=== PATIENT | female | born 1990 | race Caucasian/White ===

== ENCOUNTER 2020-07-24 23:51 | Inpatient (IN) ==
[~2020-07-24 23:51] MED LIST: Ringers Solution, Lactated 1,000 ML IVC SCH
[2020-07-24] MEDS ORDERED: *HR* FentaNYL (PF) 100 MCG/2 ML VIAL IVP PRN (23:55)
[2020-07-24] MEDS ORDERED: Ondansetron 4 MG/2 ML VIAL IVP PRN (23:55)
[2020-07-24] MEDS ORDERED: Lidocaine 1% 20 ML MDV INFILT PRN (23:55)
[2020-07-24] MEDS ORDERED: Naloxone 0.4 MG/ML INJ IVP PRN (23:55)
[2020-07-24] MEDS ORDERED: Azithromycin 500 MG in 0.9 % Sodium Chloride 250 ML IVPB ONE (23:55)
[2020-07-24] MEDS ORDERED: Famotidine 20 MG/2 ML VIAL IVP PRN (23:55)
[2020-07-24] MEDS ORDERED: Metoclopramide 10 MG/2 ML VIAL IVP PRN (23:55)
[2020-07-25] MEDS ORDERED: Ringers Solution, Lactated 1,000 ML ONE (00:14)
[2020-07-25 00:28] LABS: Basophils % 0.1 %; Eosinophils # 0.1 K/mcL (0.0-0.6); Eosinophils % 0.7 %; Hematocrit 41.8 % (35.3-44.9); Immature Granulocytes % 0.4 % (0-4); Lymphocytes # 1.9 K/mcL (0.6-4.6); Lymphocytes % 14.1 %; Mean Corpuscular HGB Conc 33.5 g/dL (31.6-35.5); Mean Corpuscular Hemoglobin 31.8 pg (28.0-33.3); Mean Platelet Volume 11.5 fL (9.4-12.4); Monocytes # 1.1 K/mcL (0.0-1.3); Neutrophils # 10.3 K/mcL (1.6-8.9); Platelet Count 162 K/mcL (140-400); Red Cell Distribution Width 13.2 % (11.5-14.5); Segmented Neutrophils % 76.7 %; White Blood Count 13.5 K/mcL (4.3-11.1)
[2020-07-25 00:33] LABS: Amphetamine Screen,Urine Negative ng/mL (Cutoff=1000); Barbiturate Screen,Urine Negative ng/mL (Cutoff=200); Benzodiazepines Screen,Urine Negative ng/mL (Cutoff=200); Cannabinoid Screen,Urine Negative ng/mL (Cutoff = 50); Cocaine Screen,Urine Negative ng/mL (Cutoff= 300); Opiate Screen,Urine Negative ng/mL (Cutoff=300); Phencyclidine Screen,Urine Negative ng/mL (Cutoff=25)
[2020-07-25] MEDS ORDERED: Epidural Premix (fent/bupiv) 110 ML EP SCH (01:15)
[2020-07-25] MEDS ORDERED: EPHEDrine 50 MG/ML VIAL IVP PRN (01:15)
[2020-07-25] MEDS ORDERED: Epidural Premix (fent/bupiv) 110 ML EP ONE (01:22)
[2020-07-25] MEDS ORDERED: Oxytocin 20 units/ LR 1000 mL 20 UNIT/1,000 ML BAG IVC ONE (03:35)
[2020-07-25] MEDS ORDERED: Mag Hydrox/Al Hydrox/Simeth 30 ML UDC PO STA (07:49)
[2020-07-25] MEDS ORDERED: Acetaminophen 325 MG TABLET PO ONE (10:11)
[2020-07-25] MEDS ORDERED: Ampicillin 2 GM in 0.9 % Sodium Chloride Mini Bag 100 ML IVPB ONE (11:51)
[2020-07-25] MEDS ORDERED: Gentamicin 450 MG in 0.9 % Sodium Chloride 100 ML IVPB ONE (11:52)
[2020-07-25] MEDS ORDERED: Gentamicin 340 MG in 0.9 % Sodium Chloride 100 ML IVPB ONE (12:07)
[2020-07-25] MEDS ORDERED: Lanolin 7 G OINT...G. TP PRN (17:48)
[2020-07-25] MEDS ORDERED: Ibuprofen 600 MG TABLET PO PRN (17:48)
[2020-07-25] MEDS ORDERED: Benzocaine/Menthol 56 GM AEROSOL SPRAY TP PRN (17:48)
[2020-07-25] MEDS ORDERED: Oxytocin 20 units/ LR 1000 mL 20 UNIT/1,000 ML BAG IVC SCH (17:48)
[2020-07-25] MEDS ORDERED: Acetaminophen 325 MG TABLET PO PRN (17:48)
[2020-07-26] MEDS ORDERED: Prenatal Vit/FA 1 EACH TABLET PO SCH (09:00)
[2020-07-26 09:43] LABS: Basophils % 0.3 %; Eosinophils # 0.2 K/mcL (0.0-0.6); Eosinophils % 1.2 %; Hematocrit 39.6 % (35.3-44.9); Hemoglobin 12.8 g/dL (11.5-15.4); Immature Granulocytes % 0.6 % (0-4); Lymphocytes # 2.6 K/mcL (0.6-4.6); Lymphocytes % 16.1 %; Mean Corpuscular HGB Conc 32.3 g/dL (31.6-35.5); Mean Corpuscular Hemoglobin 31.1 pg (28.0-33.3); Mean Corpuscular Volume 96.4 fL (83.0-100.0); Mean Platelet Volume 12.1 fL (9.4-12.4); Monocytes % 6.6 %; Neutrophils # 11.9 K/mcL (1.6-8.9); Platelet Count 140 K/mcL (140-400); Red Blood Count 4.11 M/mcL (3.82-4.97); Red Cell Distribution Width 13.6 % (11.5-14.5); Segmented Neutrophils % 75.2 %; White Blood Count 15.8 K/mcL (4.3-11.1)
[2020-07-26 19:14] VITALS: BP 128/88
== END 2020-07-26 16:41 | disposition home or self-care (01) | DRG 806 ==
LOC: 1NENULAB 23:51 → 1NENUOBS 07-25 17:48
PROVIDERS: ADMIT Obstetrics & Gynecology; ATTEND Obstetrics & Gynecology